=== PATIENT | female | born 1995 | race Caucasian/White ===

== ENCOUNTER 2018-04-15 17:53 | Emergency (ER) | payer BC ==
[~2018-04-15] VITALS: Ht 167.6 cm; Wt 63.6 kg
[2018-04-15 18:00] VITALS: BP 127/69; TEMP 98.4
[2018-04-15 19:04] VITALS: PULSE 76
== END 2018-04-15 19:09 | disposition home or self-care (01) ==
LOC: COL.ER 17:53
DX: S60.211A Contusion of right wrist, initial encounter (principal); S50.11XA Contusion of right forearm, initial encounter; K21.9 Gastro-esophageal reflux disease without esophagitis; Z88.2 Allergy status to sulfonamides; W23.0XXA Caught, crushed, jammed, or pinched between moving objects, initial encounter; Y92.009 Unspecified place in unspecified non-institutional (private) residence as the place of occurrence of the external cause

== ENCOUNTER → 2018-08-13 | Outpatient (CLI) | payer BC | LOC: COL.RAD 12:45 | DX: N94.9 Unspecified condition associated with female genital organs and menstrual cycle (principal); N83.202 Unspecified ovarian cyst, left side; Z97.5 Presence of (intrauterine) contraceptive device ==

== ENCOUNTER → 2018-11-21 | Outpatient (CLI) | payer BC | LOC: COL.RAD 11:15 | DX: N83.8 Other noninflammatory disorders of ovary, fallopian tube and broad ligament (principal); Z97.5 Presence of (intrauterine) contraceptive device ==

== ENCOUNTER 2022-04-02 03:49 | Inpatient (IN) | payer OTHER ==
[~2022-04-02] VITALS: Ht 167.6 cm; Wt 81.8 kg
[2022-04-02] VITALS (33 sets, daily range): BP systolic 81–137; BP diastolic 39–80; PULSE 61–110; TEMP 97.9–98.4
[2022-04-02 05:03] LABS: BASO # 0.1 K/mm3 (0.0-0.2); BASO % 0.6 % (0.0-2.0); EOS # 0.1 K/mm3 (0.0-0.7); EOS % 0.9 % (0.0-4.0); GRAN # 7.8 K/mm3 (1.4-6.5); GRAN % 68.5 % (42.2-75.2); HEMOGLOBIN 10.3 g/dl (12.5-16.0); LYMPH # 2.3 K/mm3 (1.2-3.4); LYMPH % 20.2 % (20.0-51.0); MEAN CELL VOLUME 89 fl (80.0-100.0); MEAN CORPUSCULAR HEMOGLOBIN 30 pg (27-31); MEAN CORPUSCULAR HGB CONC 34 g/dl (33.0-37.0); MEAN PLATELET VOLUME 12.1 fl (7.4-10.4); MONO % 8.9 % (1.7-9.3); PLATELET COUNT 196 K/mm3 (130-400); REDCELL DISTRIBUTION WIDTH-CV 13.4 % (11.5-14.5)
[2022-04-02 05:30] LABS: HEMATOCRIT 30.3 % (37.0-47.0)
--- NOTE | 2022-04-02 06:40 | NUR ---
Repeat SVE unchanged. Will notify .
--- NOTE | 2022-04-02 06:55 | NUR ---
Assisted up to birthing ball.
--- NOTE | 2022-04-02 07:15 | NUR ---
Pit start @ 2mU/min with explanation to patient and spouse. Note Category I strip prior to start.
--- NOTE | 2022-04-02 07:46 | NUR ---
in to make introduction.
--- NOTE | 2022-04-02 07:51 | NUR ---
Assisted up to BR @ this time.
--- NOTE | 2022-04-02 08:35 | NUR ---
Patient c/o nausea, will administer Zofran. See emar for details.
--- NOTE | 2022-04-02 09:15 | NUR ---
Assisted up to BR.
--- NOTE | 2022-04-02 09:18 | NUR ---
Requests epidural. LR bolus begun. MAMTA Garner, notified.
--- NOTE | 2022-04-02 09:20 | NUR ---
Back to birthing ball following return from bathroom.
--- NOTE | 2022-04-02 09:45 | NUR ---
MAMTA Garner, here for epidural placement per patient request.
--- NOTE | 2022-04-02 09:45 | NUR ---
Sitting upright at side of bed in preparation for epidural placement. Pascual Tenorio CRNA, here. 0953-Local anesthetic administered. Epidural needle in skin, epidural space obtained. 0954-Single shot dose administered by POOL MANAGER. No adverse reactions noted. Tolerates procedure well.
--- NOTE | 2022-04-02 10:00 | NUR ---
Positioned in supine with wedge to left following epidural placement.
--- NOTE | 2022-04-02 10:30 | NUR ---
Repositioned to left lateral with right leg in stirrup.
--- NOTE | 2022-04-02 11:00 | NUR ---
Repositioned to right lateral with left leg in stirrup.
--- NOTE | 2022-04-02 11:45 | NUR ---
Repositioned to upright in xiao's.
--- NOTE | 2022-04-02 11:47 | NUR ---
Repositioned to sitting upright in xiao's.
--- NOTE | 2022-04-02 12:42 | NUR ---
Pit off at this time, as noted prolonged deceleration. Patient flipped from left lateral to right lateral with no improvement. 1245- notified. Request he review strip or come in for evaluation. 1245-Repositioned to knee chest.
--- NOTE | 2022-04-02 12:46 | NUR ---
Note prolonged decel, approximately 6.5 minutes in duration, down in 70s at lowest point, now returns to previous baseline while patient in knee chest.
--- NOTE | 2022-04-02 12:55 | NUR ---
here. Reviews monitor strip. Recommends primary section. Patient agreeable to plan of care. Denies any questions. This screen writer discusses with patient she has time to think about it and talk it over with her spouse, and does not have to agree to this at this time. Patient verbalizes she wants to do what doctor recommends is best.
--- NOTE | 2022-04-02 12:59 | NUR ---
makes decision to proceed with primary section.
--- NOTE | 2022-04-02 13:05 | NUR ---
Pascual Tenorio CRNA, in to administer bolus dose.
--- NOTE | 2022-04-02 13:07 | NUR ---
Transferred to OR per bed at this time.
--- NOTE | 2022-04-02 16:53 | NUR ---
1341 This RN takes report from Nadia Jose
[2022-04-03 07:18] VITALS: BP 111/65; PULSE 79; TEMP 97.8
[2022-04-03 15:45] VITALS: BP 119/64; PULSE 93; TEMP 97.9
[2022-04-03 20:30] VITALS: BP 110/54; PULSE 91; TEMP 98
[2022-04-04 08:40] VITALS: BP 109/72; PULSE 85; TEMP 97.9
[2022-04-04] MEDS ORDERED: IBU800 M1 PO (09:15)
[2022-04-04] MEDS ORDERED: PERCOCET 325 MG1 TA2 PO (09:16)
--- NOTE | 2022-04-04 13:30 | NUR ---
Discharge instructions and follow up care reviewed with pt and at the bedside. Both verbalized an understanding, agreed with the plan and states no questions or concerns at this time.
== END 2022-04-04 14:05 | disposition home or self-care (01) | DRG 788 ==
LOC: LDRO 03:49 → OB 04:32 → LDR 04:32 → OB 14:40
PROVIDERS: ADMIT Obstetrics & Gynecology
PROC: 10D00Z1 Extraction of Products of Conception, Low, Open Approach (ICD-10-PCS; principal; 2022-04-02)
DX: O98.32 Other infections with a predominantly sexual mode of transmission complicating childbirth (principal); A60.09 Herpesviral infection of other urogenital tract; O76 Abnormality in fetal heart rate and rhythm complicating labor and delivery; O34.13 Maternal care for benign tumor of corpus uteri, third trimester; Z37.0 Single live birth; Z3A.40 40 weeks gestation of pregnancy; Z86.16 Personal history of COVID-19; Z88.2 Allergy status to sulfonamides
CPT/HCPCS: J0690; J1885; J2175; J2370; J2405; J2590; J2795; J7120

== ENCOUNTER 2022-04-07 22:02 | Emergency (ER) | payer OTHER ==
[~2022-04-07] VITALS: Ht 167.6 cm; Wt 76.4 kg
[~2022-04-07 22:02] MED LIST: IBU800 M1 PO; PERCOCET 325 MG1 TA2 PO
[2022-04-07 22:19] VITALS: TEMP 98.5
[2022-04-07 23:35] LABS: BASO # 0.1 K/mm3 (0.0-0.2); BASO % 0.5 % (0.0-2.0); EOS # 0.1 K/mm3 (0.0-0.7); EOS % 1.3 % (0.0-4.0); GRAN # 7.3 K/mm3 (1.4-6.5); GRAN % 69.9 % (42.2-75.2); LYMPH % 19.6 % (20.0-51.0); MEAN CELL VOLUME 94 fl (80.0-100.0); MEAN CORPUSCULAR HGB CONC 33 g/dl (33.0-37.0); MONO # 0.8 K/mm3 (0.1-0.6); PLATELET COUNT 314 K/mm3 (130-400); RED BLOOD COUNT 2.78 M/mm3 (4.10-5.30); REDCELL DISTRIBUTION WIDTH-CV 13.4 % (11.5-14.5)
[2022-04-07 23:38] LABS: HEMATOCRIT 26.2 % (37.0-47.0); HEMOGLOBIN 8.6 g/dl (12.5-16.0); MEAN CORPUSCULAR HEMOGLOBIN 31 pg (27-31)
[2022-04-07 23:45] LABS: ALANINE AMINOTRANSFERASE 16 U/L (0-55); ALBUMIN 3.1 gm/dL (3.5-5.0); ALKALINE PHOSPHATASE 104 U/L (40-150); ANION GAP 12 mmol/L (7-16); AST,SGOT 22 U/L (5-34); BILIRUBIN,TOTAL 0.2 mg/dL (0.2-1.2); BLOOD UREA NITROGEN 12 mg/dL (7-19); CALCIUM 9.4 mg/dL (8.4-10.2); CARBON DIOXIDE 18 mmol/L (22-29); CHLORIDE 110 mmol/L (98-107); CREATININE, serum 0.68 mg/dL (0.57-1.11); GLUCOSE 90 mg/dL (70-99); POTASSIUM 3.9 mmol/L (3.5-4.5); SODIUM 140 mmol/L (136-145)
[2022-04-07 23:52] LABS: TROPONIN-I < 0.010 ng/mL (0.00-0.033)
[2022-04-08 01:32] VITALS: BP 119/77; PULSE 77
== END 2022-04-08 02:01 | disposition home or self-care (01) ==
LOC: COL.ER 22:02
PROVIDERS: Emergency Medicine
DX: O90.81 Anemia of the puerperium (principal); O90.89 Other complications of the puerperium, not elsewhere classified; R79.1 Abnormal coagulation profile; Z20.822 Contact with and (suspected) exposure to COVID-19; Z28.311 Partially vaccinated for COVID-19
CPT/HCPCS: Q9967